=== PATIENT | male | born 1985 | race African-American/Black ===

== ENCOUNTER 2018-07-04 12:17 | Emergency (ER) | payer MEDICAID, OTHER ==
[~2018-07-04] VITALS: Ht 185.4 cm; Wt 99.8 kg
[2018-07-04 12:30] VITALS: BP 115/69
== END 2018-07-04 16:04 | disposition home or self-care (01) ==
LOC: ER 12:22
CPT/HCPCS: 70450

== ENCOUNTER 2021-03-22 14:23 | Emergency (ER) | payer MEDICAID ==
[~2021-03-22] VITALS: Ht 182.9 cm; Wt 99.8 kg
[2021-03-22 14:45] VITALS: BP 168/81
== END 2021-03-22 16:32 | disposition home or self-care (01) ==
LOC: ER 14:23
DX: S16.1XXA Strain of muscle, fascia and tendon at neck level, initial encounter (principal); S09.93XA Unspecified injury of face, initial encounter; S09.90XA Unspecified injury of head, initial encounter; W18.39XA Other fall on same level, initial encounter; Y93.89 Activity, other specified; Y92.89 Other specified places as the place of occurrence of the external cause; Y99.8 Other external cause status
CPT/HCPCS: 70450; 70486; 72125; 93005

== ENCOUNTER 2024-03-07 20:17 | Emergency (ER) | payer MEDICAID ==
[~2024-03-07] VITALS: Ht 185.4 cm; Wt 91.4 kg
[2024-03-07 20:30] VITALS: BP 125/74; PULSE 51; RESP 18; TEMP 97.6; O2SAT 97
[2024-03-07] MEDS: IBUPROFEN 800 MG TAB PO ONE (22:11)
[2024-03-07] MEDS: HYDROcodone-ACET 5/325MG TAB PO ONE (22:11)
== END 2024-03-07 23:34 | disposition home or self-care (01) ==
LOC: ER 20:17
DX: S46.911A Strain of unspecified muscle, fascia and tendon at shoulder and upper arm level, right arm, initial encounter (principal); S09.91XA Unspecified injury of ear, initial encounter; W18.09XA Striking against other object with subsequent fall, initial encounter; Y93.89 Activity, other specified; Y92.89 Other specified places as the place of occurrence of the external cause; Y99.8 Other external cause status
CPT/HCPCS: 73030

== ENCOUNTER 2025-01-13 10:50 | Emergency (ER) | payer MEDICAID ==
[~2025-01-13] VITALS: Ht 185.4 cm; Wt 91.5 kg
[2025-01-13 10:57] VITALS: BP 119/67; PULSE 57; RESP 16; TEMP 98.3; O2SAT 98
--- NOTE | 2025-01-13 12:00 | ED.PDOC ---
HPI Comments 39 year old male with no past medical history presents to the emergency department with a chief complaint of laceration onset 1 day. Patient states he crushed his LT hand 3rd digit with a door, since then noticed laceration on finger, with bleeding, tip of nail is hanging. No other symptoms or modifiyng factors present at this time. Denies fevers chills night sweats nausea vomiting Denies previous surgeries to the LT hand Denies Numbness/tingling down the arm Denies changes, shortness of breath Chief Complaint: Laceration Time Seen by MD: 11:45 Primary Care Provider: VIVEK Reviewed Notes: Nurses Notes, Medications, Allergies Allergies: Coded Allergies: NO KNOWN ALLERGIES (Unverified , 07/04/18) Information Source: Patient Mode of Arrival: Ambulatory Severity: Moderate Severity of Laceration: Controlled Bleeding Complexity: Simple Timing: Days Prehospital treatment: None Laceration Location: Digit #3 Mechanism: Blunt Trauma Last Tetanus: UTD Skin Type: Linear Tendon Injury: 0% Capillary Refill: < 3 seconds Tender: Moderate Past Medical History PAST MEDICAL HISTORY: Denies Surgical History: Denies all surgeries Family History Family History: Reviewed,noncontributory to illness, Unknown Social History Smoker: Non-Smoker Alcohol: Denies ETOH Use Drugs: Denies Drug Use Lives In: Home All Other Systems: Reviewed and Negative (as per HPI) Physical Exam General Appearance: Normal HEENT: Normal ENT Inspection, Pharynx Normal, TMs Normal Neck: Full Range of Motion, Non-Tender, Normal, Normal Inspection Respiratory: Chest Non-Tender, Lungs Clear, No Accessory Muscle Use, No Respiratory Distress, Normal Breath Sounds Cardiovascular: No Edema, No JVD, No Murmur, No Gallop, Normal Peripheral Pulses, Regular Rate/Rhythm Breast Exam: Deferred Gastrointestinal: No Organomegaly, Non Tender, No Pulsatile Mass, Normal Bowel Sounds, Soft Genitalia: Deferred Pelvic: Deferred Rectal: Deferred Extremities: No calf tenderness, Normal capillary refill, Normal inspection, Normal range of motion, Non-tender, No pedal edema Musculoskeletal : Apperance: Normal Neurologic: Alert, registered pharmacy technician II-XII nml as Tested, No Motor Deficits, Normal Affect, Normal Mood, No Sensory Deficits Cerebellar Function: Normal Reflexes: Normal Skin: Dry, Normal Color, Warm Lymphatic: No Adenopathy Was a procedure done? Was a procedure done?: No X-Ray, Labs, Meds, VS Vital Signs Date Time Temp Pulse Resp B/P (MAP) Pulse Ox O2 Delivery O2 Flow Rate FiO2 01/13/25 10:57 98.3 57 16 119/67 (84) 98 98.3 [facility] [id number] [facility] [address] Ph: [phone] DIAGNOSTIC IMAGING Diagnostic Imaging Report : [id number] Signed PATIENT: HALLE SCOTT ACCT: [id number] UNIT: [id number] : 1985 LOC: ER ROOM / BED: / AGE / SEX: 39 / M ADM STATUS: REG ER SERVICE 1210 ORDERING PHYSICIAN: JODY DONNELLY NP PROCEDURE(s): LHAN - L HAND 3V XRAY REASON: r/o fracture long finger ORDER NUMBER(s): [id number], ACCESSION NUMBER(s): [id number] XY L HAND 3V XRAY, INDICATION: r/o fracture long finger TECHNICAL DATA: Frontal, oblique and lateral views were obtained of the left hand. COMPARISON: None FINDINGS: No fracture is identified. Joint spaces are maintained. Alignment is anatomic. 4 digit laceration. IMPRESSION: No acute fracture or dislocation of the left hand. ATED BY: PANFILO LORD MD DICTATED DATE/TIME: 01/13/25 1236 SIGNED BY: PANFILO LORD MD SIGNED DATE/TIME: 01/13/25 1236 CC: X-Ray, Labs, Meds, VS Comment 39 year old male with no past medical history presents to the emergency department with a chief complaint of laceration onset 1 day. Patient arrives alert and oriented, ABC's intact, afebrile, vital signs stable, saturating well in room air Diagnostic imaging ordered by me and results interpreted by radiology : L HAND 3V XRAY: IMPRESSION: No acute fracture or dislocation of the left hand. Additional MDM Review of External, Non-ED records: External records reviewed. Discussion with independent historian (EMS, family) history obtained from the patient/parents (if applicable) at bedside Chronic conditions affecting care: None Social determinants of health affecting care: None Consideration of admission (observation or admission): I considered escalation of care to admission for this patient, however given the reassuring workup, the patient is safe for outpatient management. Time of 1ST Reevaluation: 12:15 Reevaluation 1ST: Improved Patient Education/Counseling: Diagnosis, Treatment Family Education/Counseling: No Family Present Departure 1 Departure Time of Disposition: 12:45 Impression: Primary Impression: Nailbed injury Disposition: 01 HOME / SELF CARE / HOMELESS Condition: Stable Discharged With: Self Critical Care Note Critical Care Time?: No Stability Stability form required: No Heart Score Heart Score: Heart Score Response (Comments) Value History N/A 0 EKG N/A 0 Age N/A 0 Risk Factors N/A 0 Troponin N/A 0 Total 0 I personally scribed for JODY DONNELLY ALTERATION HAND (TAE) on 01/13/25 at 12:00. Electronically submitted by Vanessa Lawton ([email or web address]). I personally scribed for JODY DONNELLY ALTERATION HAND ([email or web address]) on 01/13/25 at 13:45. Electronically submitted by Vanessa Lawton ([email or web address]). I personally scribed for JODY DONNELLY ALTERATION HAND ([email or web address]) on 01/13/25 at 13:56. Electronically submitted by aVnessa Lawton ([email or web address]). JODY DONNELLY ALTERATION HAND Jan 13, 2025 12:00
--- NOTE | 2025-01-13 12:39 | DVH ---
XY L HAND 3V XRAY, INDICATION: r/o fracture long finger TECHNICAL DATA: Frontal, oblique and lateral views were obtained of the left hand. COMPARISON: None FINDINGS: No fracture is identified. Joint spaces are maintained. Alignment is anatomic. 4 digit laceration. IMPRESSION: No acute fracture or dislocation of the left hand.
== END 2025-01-13 12:58 | disposition home or self-care (01) ==
LOC: ER 10:50
DX: S61.213A Laceration without foreign body of left middle finger without damage to nail, initial encounter (principal); W23.0XXA Caught, crushed, jammed, or pinched between moving objects, initial encounter; Y93.89 Activity, other specified; Y92.89 Other specified places as the place of occurrence of the external cause; Y99.8 Other external cause status
CPT/HCPCS: 73130